=== PATIENT | female | born 1965 | race African-American/Black ===

== ENCOUNTER 2019-04-24 19:13 | Emergency (ER) | payer OTHER ==
[~2019-04-24] VITALS: Ht 154.9 cm; Wt 126.2 kg
[2019-04-24 19:32] VITALS: Ht 154.9 cm; Wt 126.2 kg
[2019-04-24 20:15] LABS: BASOPHIL % 0.4 % (0-2); PLATELET COUNT 358 x10^3mcL (130-400); RED CELL DISTRIBUTION WIDTH 14.4 % (11.5-14.5)
[2019-04-24 20:17] LABS: CALCIUM 9.6 mg/dL (8.5-10.1); CARBON DIOXIDE 27.5 mmol/L (21-32); CREATININE SERUM 1.1 mg/dL (0.6-1.0)
[2019-04-24 20:21] LABS: ALBUMIN 3.4 g/dL (3.4-5.0); BILIRUBIN TOTAL 0.1 mg/dL (0.20-1.00); PHOSPHOROUS 2.8 mg/dL (2.5-4.9); URIC ACID 6.5 mg/dL (2.6-6.0)
[2019-04-24 21:53] VITALS: BP 152/79
== END 2019-04-24 21:53 | disposition home or self-care (01) ==
LOC: ED 19:13
PROVIDERS: Emergency Medicine
DX: F41.9 Anxiety disorder, unspecified (principal); R00.2 Palpitations; I10 Essential (primary) hypertension; Z90.710 Acquired absence of both cervix and uterus; Z88.0 Allergy status to penicillin; Z88.5 Allergy status to narcotic agent
CPT/HCPCS: 36415; Q0092

== ENCOUNTER 2019-05-20 01:14 | Emergency (ER) | payer OTHER ==
[~2019-05-20] VITALS: Ht 157.5 cm; Wt 124.3 kg
[2019-05-20 01:16] VITALS: BP 185/80; Ht 157.5 cm; Wt 124.3 kg
== END 2019-05-20 03:04 | disposition left against medical advice (07) ==
LOC: ED 01:14
DX: Z53.21 Procedure and treatment not carried out due to patient leaving prior to being seen by health care provider (principal)

== ENCOUNTER 2019-05-20 05:29 | Emergency (ER) | payer OTHER ==
[~2019-05-20] VITALS: Ht 157.5 cm; Wt 123.4 kg
[2019-05-20 05:38] VITALS: Ht 157.5 cm; Wt 123.4 kg
[2019-05-20 07:18] LABS: BASOPHIL % 0.3 % (0-2); PLATELET COUNT 343 x10^3mcL (130-400); RED CELL DISTRIBUTION WIDTH 14.2 % (11.5-14.5)
[2019-05-20 07:24] LABS: CARBON DIOXIDE 25.8 mmol/L (21-32); CHLORIDE SERUM 105 mmol/L (98-107); GFR1 > 60 mL/min; GLUCOSE SERUM 102 mg/dL (74-106); POTASSIUM SERUM 4.1 mmol/L (3.5-5.1); SODIUM SERUM 142 mmol/L (136-145)
[2019-05-20 07:38] LABS: ALKALINE PHOSPHATASE 66 U/L (46-116); ALT/SGPT 25 U/L (14-59); AMYLASE 54 U/L (25-115); AST/SGOT 18 U/L (15-37); BILIRUBIN TOTAL 0.2 mg/dL (0.20-1.00); CHOLESTEROL 163 mg/dL (<200); HDL CHOLESTEROL 39 mg/dL (40-60); LIPASE 127 IU/L (73-393); T4(THYROXINE) 8.8 ug/dL (4.7-13.3); TOTAL PROTEIN, SERUM 7.9 g/dL (6.4-8.2)
[2019-05-20 07:41] LABS: ALBUMIN 3.3 g/dL (3.4-5.0)
[2019-05-20 08:35] LABS: UA SPECIFIC GRAVITY 1.025 (1.005-1.035); microscopic required? YES; urine erythrocyte TRACE (NEGATIVE)
[2019-05-20 08:40] LABS: AMPHETAMINE QUAL UR NONE DETECTED (See below)
[2019-05-20 09:11] VITALS: BP 168/88
== END 2019-05-20 09:11 | disposition home or self-care (01) ==
LOC: ED 05:29
PROVIDERS: Emergency Medicine
DX: E46 Unspecified protein-calorie malnutrition (principal); I10 Essential (primary) hypertension; E66.9 Obesity, unspecified; F41.9 Anxiety disorder, unspecified; Z68.42 Body mass index [BMI] 45.0-49.9, adult; Z88.0 Allergy status to penicillin; Z88.5 Allergy status to narcotic agent; Z98.890 Other specified postprocedural states; Z90.711 Acquired absence of uterus with remaining cervical stump
CPT/HCPCS: 36415; 83880

== ENCOUNTER 2019-07-22 09:20 | Emergency (ER) | payer OTHER ==
[~2019-07-22] VITALS: Ht 157.5 cm; Wt 126.1 kg
[2019-07-22 09:28] VITALS: Ht 157.5 cm; Wt 126.1 kg
[2019-07-22 10:49] LABS: CALCIUM 9.5 mg/dL (8.5-10.1); CARBON DIOXIDE 28.2 mmol/L (21-32); CHLORIDE SERUM 105 mmol/L (98-107); GFR1 > 60 mL/min; GLUCOSE SERUM 134 mg/dL (74-106); SODIUM SERUM 143 mmol/L (136-145)
[2019-07-22 10:54] LABS: ALKALINE PHOSPHATASE 77 U/L (46-116); ALT/SGPT 27 U/L (14-59); AST/SGOT 18 U/L (15-37); BASOPHIL % 0.3 % (0-2); BILIRUBIN TOTAL 0.23 mg/dL (0.20-1.00); PLATELET COUNT 351 x10^3mcL (130-400)
[2019-07-22 10:56] LABS: RED CELL DISTRIBUTION WIDTH 14.6 % (11.5-14.5)
[2019-07-22 10:58] LABS: ALBUMIN 3.3 g/dL (3.4-5.0); TOTAL PROTEIN, SERUM 8.3 g/dL (6.4-8.2)
[2019-07-22 11:22] LABS: UA SPECIFIC GRAVITY 1.025 (1.005-1.035); microscopic required? YES; urine erythrocyte NEGATIVE (NEGATIVE)
[2019-07-22 12:22] VITALS: BP 157/89
== END 2019-07-22 12:22 | disposition home or self-care (01) ==
LOC: ED 09:20
PROVIDERS: Emergency Medicine
DX: R42 Dizziness and giddiness (principal); F41.9 Anxiety disorder, unspecified; I10 Essential (primary) hypertension; Z90.711 Acquired absence of uterus with remaining cervical stump; Z88.0 Allergy status to penicillin; Z88.1 Allergy status to other antibiotic agents
CPT/HCPCS: 82962; J7030; J8597